=== PATIENT | female | born 1955 | race Hispanic/Latino ===

== ENCOUNTER 2018-04-01 05:30 | Day surgery (SDC) | payer OTHER ==
[~2018-04-01] VITALS: Ht 154.9 cm; Wt 69.9 kg
[2018-04-01] MEDS ORDERED: SODIUM CHLORIDE 0.9% 1000ML 1,000 ML IV ONE (05:46)
[2018-04-01 06:02] VITALS: BP 137/56
[2018-04-01] MEDS ORDERED: CHOL3000 PO (06:19)
[2018-04-01] MEDS ORDERED: METF-444 PO (06:19)
[2018-04-01] MEDS ORDERED: RAMI10CA58 PO (06:19)
[2018-04-01] MEDS ORDERED: SIMV10TA6 PO (06:19)
[2018-04-01] MEDS ORDERED: ASPI-555 PO (06:19)
[2018-04-01] MEDS ORDERED: PROPOFOL 1000 MG/100 ML 100 ML IV ONE (07:11)
[2018-04-01 07:33] VITALS: BP 86/51
[2018-04-01 07:37] VITALS: BP 103/52
[2018-04-01 07:40] VITALS: BP 107/59
[2018-04-01 07:45] VITALS: BP 102/51
[2018-04-01 07:50] VITALS: BP 113/62
== END 2018-04-01 08:29 | disposition home or self-care (01) ==
LOC: DAH 05:30 → ENDO 05:30
PROVIDERS: ATTEND Internal Medicine
DX: Z12.11 Encounter for screening for malignant neoplasm of colon (principal); D12.3 Benign neoplasm of transverse colon; K63.5 Polyp of colon; K57.30 Diverticulosis of large intestine without perforation or abscess without bleeding; E11.9 Type 2 diabetes mellitus without complications; E78.5 Hyperlipidemia, unspecified; I10 Essential (primary) hypertension; Z98.890 Other specified postprocedural states; Z79.899 Other long term (current) drug therapy; Z79.84 Long term (current) use of oral hypoglycemic drugs
CPT/HCPCS: 45380; 82948 ×2; 88305; 93005; A4606; J2704; J7030